=== PATIENT | female | born 1960 | race Caucasian/White ===

== ENCOUNTER 2022-08-20 09:55 | Outpatient (REF) | payer OTHER, SELFPAY ==
[2022-08-20 11:09] LABS: MANUAL DIFF FLAG NO
[2022-08-20 11:36] LABS: Basophils Percent Auto 0.3 % (0-2); Hematocrit 38.3 % (37.0-47.0); Hemoglobin 12.4 g/dl (12.0-16.0); Imm Gran Abs Auto 0.03 X10*3/uL (0.00-0.03); Imm Gran Pct Auto 0.4 % (0.0-0.4); Lymphocytes Absolute Auto 2.2 X10*3/uL (1.2-4.9); Lymphocytes Percent Auto 29.8 % (20-40); Mean Corpuscular HGB Conc 32.4 g/dl (31.0-35.0); Mean Corpuscular Hemoglobin 27.4 pg (27.0-33.0); Mean Corpuscular Volume 84.5 fL (80.0-98.0); Mean Platelet Volume 9.6 fL (9.4-12.3); Monocytes Absolute Auto 0.8 X10*3/uL (0.1-1.2); Monocytes Percent Auto 11.2 % (2-11); Neutrophils Absolute Auto 4.3 x10*3/uL (2.0-8.3); Neutrophils Percent Auto 58.3 % (45-73); Platelet Count 324 X10*3/uL (160-400); Red Blood Count 4.53 X10*6/uL (4.20-5.50); Red Cell Distribution Width 12.6 % (11.0-16.0); White Blood Count 7.3 X10*3/uL (4.8-10.8)
[2022-08-20 12:08] LABS: Alanine Aminotransferase 50 U/L (0-31); Albumin Level 4.1 g/dL (3.5-5.0); Alkaline Phosphatase 85 U/L (39-117); Anion Gap 15 (12-20); Aspartate Amino Transferase 35 U/L (5-31); Bilirubin Total 0.5 mg/dL (0.0-1.0); Blood Urea Nitrogen 8 mg/dL (9-16); Calcium 9.2 mg/dL (8.4-10.2); Carbon Dioxide 27 mmol/L (22-29); Chloride 104 mmol/L (96-108); Cholesterol 192 mg/dL; Estimated Glomerular Filt Rate > 60; Glucose Fasting 94 mg/dL (60-99); HDL Cholesterol 66 mg/dL; LDL Cholesterol Calculated 100 mg/dl; Potassium 4.7 mmol/L (3.3-5.1); Sodium 141 mmol/L (135-145); Total Protein 6.9 g/dL (6.5-8.0); Triglycerides 134 mg/dL
== END 2022-08-20 09:56 | disposition home or self-care (01) ==
LOC: HO.WFDLDS 09:55
PROVIDERS: Visit Provider Family Medicine
DX: Z00.00 Encounter for general adult medical examination without abnormal findings (principal)
CPT/HCPCS: 36415; 80053; 80061; 84443; 85025

== ENCOUNTER 2023-02-05 11:41 | Outpatient (REF) | payer OTHER, SELFPAY ==
[2023-02-05 14:07] LABS: Appearance Urine Cloudy; Color Urine Yellow; Glucose Urine UA Negative (Negative); Leukocyte Esterase Urine Large (3+) (Negative); Nitrite Urine Negative (Negative); PH 5.5 (5.0-9.0); UMIC TRIGGER UA YES; Urine Blood Negative (Negative); Urine Ketones Trace mg/dL (Negative); Urine Protein Trace mg/dL (Neg-Trace)
[2023-02-05 14:12] LABS: Bacteria Urine 1+ (None Seen); WBC Urine >50 /HPF (0-5)
[2023-02-05 15:23] LABS: Creatinine Urine 178.19 mg/dL
[2023-02-05 15:40] LABS: Alanine Aminotransferase 27 U/L (0-31); Albumin Level 4.1 g/dL (3.5-5.0); Alkaline Phosphatase 87 U/L (39-117); Anion Gap 12 (12-20); Aspartate Amino Transferase 23 U/L (5-31); Bilirubin Total 0.5 mg/dL (0.0-1.0); Blood Urea Nitrogen 16 mg/dL (9-16); Calcium 9.1 mg/dL (8.4-10.2); Carbon Dioxide 29 mmol/L (22-29); Chloride 106 mmol/L (96-108); Estimated Glomerular Filt Rate > 60; Glucose Random 93 mg/dL (60-115); Potassium 4.4 mmol/L (3.3-5.1); Sodium 143 mmol/L (135-145); Total Protein 6.7 g/dL (6.5-8.0)
== END 2023-02-05 11:42 | disposition home or self-care (01) ==
LOC: HO.WFDLDS 11:41
PROVIDERS: Visit Provider Family Medicine
DX: R79.89 Other specified abnormal findings of blood chemistry (principal); I10 Essential (primary) hypertension
CPT/HCPCS: 36415; 80053; 81001; 81003; 82043

== ENCOUNTER 2023-03-14 05:32 | Outpatient (REF) | payer OTHER, SELFPAY ==
--- NOTE | ~2023-03-14 | XR_ITS ---
EXAMINATION: XR HIP, RIGHT CLINICAL INFORMATION: Right hip pain COMPARISON: None available. TECHNIQUE: Two views of the right hip. FINDINGS: No acute fracture or dislocation. Mild to moderate narrowing of the right femoral acetabular joint. XR/XR hip RT w PEL1V IMPRESSION: Mild to moderate narrowing of the right femoral acetabular joint.
== END 2023-03-14 05:33 | disposition home or self-care (01) ==
LOC: HO.HOSX 05:32
PROVIDERS: Visit Provider Physician Assistant
DX: M70.61 Trochanteric bursitis, right hip (principal); M76.891 Other specified enthesopathies of right lower limb, excluding foot; M54.31 Sciatica, right side
CPT/HCPCS: 73502; 99202

== ENCOUNTER 2023-09-16 11:30 | Outpatient (AMB) | payer OTHER, SELFPAY ==
[2023-09-16 11:46] VITALS: BP 118/72; PULSE 80; O2SAT 95; BMI 34.5
--- NOTE | 2023-09-16 11:46 | MHC.PC.OV ---
Vital Signs 09/16/23 11:46 Height 5 ft 6 in Weight 214 lb BMI 34.5 BP 118/72 Blood Pressure Location Lt brachial Position Sitting Pulse 80 Pulse Source Pulse Oximeter Pulse Oximetry (%) 95 Oxygen Delivery Method Room Air Intake Visit Reasons: Follow up chronic conditions Intake Note: Patient is here to follow up on chronic conditions. Allergies No Known Allergies Allergy (Verified 09/16/23 11:49) Tobacco use date assessed: 09/16/23 Fall risk assessment: No Falls in past year Last assessed Fall Risk: 09/16/23 Dental Screening Dental Screen Date: 09/16/23 Did you have a dental visit in the last 12 months?: Yes Did you have a dental problem in the last 6 months where you did not have access to dental care?: No Was dental information given to patient?: Patient has dentist HPI Follow up chronic conditions HPI Details 63 y/o female presents to f/u chronic conditions. She reports she has been watching her diet and has been getting some exercise. [facility] Medical History Impacted molar Schizoaffective disorder Surgical History [place] teeth removed Social History Housing: House Patient Tobacco Use Status: Never used Tobacco e-Cigarette/Vaping Use: Never Used Second Hand Smoke Exposure: No service: No Current occupational status: retired Current occupational exposures/hazards: No Cognitive needs: No Hearing needs: No Vision needs: Yes (wears prescription glasses.) Questionnaire Thrive Questionnaire Date Thrive assessed: 01/29/23 JACOBO-7 AMB Questionnaire JACOBO-7 Date JACOBO - 7 assessed: 01/29/23 Source: Developed by Drs. Estevan France, Erika Cleaning, Cole Jean and colleagues, with an educational suman from [employer]. Review of Systems Const Denies chills, Denies fatigue, Denies fever(s), Denies headache(s) and Denies weakness ENT Denies dizziness and Denies headache(s) Card Denies chest pain, Denies lightheadedness, Denies dyspnea and Denies other (Palpitations) Resp Denies cough, Denies dyspnea, Denies wheezing and Denies other ( shortness of breath) Musc Denies numbness and Denies tingling Neuro Denies dizziness, Denies headache(s), Denies numbness, Denies tingling, Denies paresthesias and Denies weakness Psych Denies anxiety and Denies depression Endo Denies fatigue Aller/Immun Denies wheezing Physical exam (Primary Care) Vital Signs: Last Vital Signs Pulse 80 09/16/23 11:46 BP 118/72 09/16/23 11:46 Pulse Ox 95 09/16/23 11:46 Oxygen Delivery Method Room Air 09/16/23 11:46 BMI result Body Mass Index 34.5 Tobacco/Smoking Status: Tobacco use Status Tobacco use date assessed 09/16/23 09/16/23 11:55 Patient Tobacco Use Status Never used Tobacco 09/16/23 11:55 e-Cigarette/Vaping Use Never Used 09/16/23 11:55 Thrive Assessment: Date of Thrive Assessment Date Thrive assessed 01/29/23 09/16/23 11:55 Const General: no acute distress and well developed Nutritional Appearance: well nourished Orientation/consciousness: patient oriented x3 [facility] Head: Yes normocephalic and Yes atraumatic Eyes General: appearance normal, both eyes and all related structures Pupils: Equal, round and reactive pupils present EOM: EOMs intact bilaterally Resp Effort & Inspection: normal respiratory effort Auscultation: clear to auscultation bilaterally Cardio Rate: regular rate Rhythm: regular rhythm Heart sounds: S1 normal heart sound present, S2 normal heart sound present, no gallops, no murmurs and no rubs Neuro General: patient oriented x3 and gait normal Cranial nerves: Yes Equal, round and reactive pupils present Psych Affect: normal affect Assessment and Plan Assessment & Plan (1) Right hip pain: Code(s): M25.551 - Pain in right hip Plan: Continue?stretching?exercises Can?use?ibuprofen?episodically?for?few?days?at?a?time Ice/heat Let?me?know?if?you?are?having?any?other?problems?and?we?can?try?physical?therapy?or?refer?back?to?ortho (2) Obesity: Code(s): E66.9 - Obesity, unspecified Plan: She?has?lost?about?5?lb?since?her?last?visit I?encouraged?her?to?continue?exercising?and?work?at?healthy?foods?and?a?decrease?in?portion?sizes?for?continued?weight?loss. Orders: Orders Lipid Panel Today Z00.00 - Encounter for general adult medical examination without abnormal findings UA and rflx microscopic Today Z00.00 - Encounter for general adult medical examination without abnormal findings Comprehensive Wells. Panel Fast Today Z00.00 - Encounter for general adult medical examination without abnormal findings Complete Blood Count Auto Diff Today Z00.00 - Encounter for general adult medical examination without abnormal findings Microalbumin, Random (w Creat) Today I10 - Essential (primary) hypertension TSH reflex Free T4 Today Z00.00 - Encounter for general adult medical examination without abnormal findings Coding Level of Care Code Est Pt Level 3 (87847) Diagnoses Right hip pain M25.551 Obesity E66.9
== END 2023-09-16 12:31 | disposition home or self-care (01) ==
PROVIDERS: PCP Family Medicine; Visit Provider Family Medicine
DX: M25.551 Pain in right hip (principal); E66.9 Obesity, unspecified; Z68.34 Body mass index [BMI] 34.0-34.9, adult
CPT/HCPCS: 99213

== ENCOUNTER 2024-02-04 10:22 | Outpatient (REF) | payer OTHER, SELFPAY ==
[2024-02-04 11:39] LABS: Basophils Percent Auto 0.5 % (0-2); Hematocrit 37.1 % (37.0-47.0); Hemoglobin 12.1 g/dl (12.0-16.0); Imm Gran Abs Auto 0.01 X10*3/uL (0.00-0.03); Imm Gran Pct Auto 0.2 % (0.0-0.4); Lymphocytes Absolute Auto 1.7 X10*3/uL (1.2-4.9); Lymphocytes Percent Auto 28.6 % (20-40); MANUAL DIFF FLAG NO; Mean Corpuscular HGB Conc 32.6 g/dl (31.0-35.0); Mean Corpuscular Hemoglobin 27.2 pg (27.0-33.0); Mean Corpuscular Volume 83.4 fL (80.0-98.0); Mean Platelet Volume 9.8 fL (9.4-12.3); Monocytes Absolute Auto 0.6 X10*3/uL (0.1-1.2); Neutrophils Absolute Auto 3.7 x10*3/uL (2.0-8.3); Neutrophils Percent Auto 60.7 % (45-73); Platelet Count 316 X10*3/uL (160-400); Red Blood Count 4.45 X10*6/uL (4.20-5.50); Red Cell Distribution Width 12.7 % (11.0-16.0)
[2024-02-04 11:40] LABS: Appearance Urine Clear; Color Urine Dark Yellow; Glucose Urine UA Negative (Negative); Leukocyte Esterase Urine Trace (Negative); Nitrite Urine Negative (Negative); Specific Gravity - Urine 1.015 (1.005-1.025); UMIC TRIGGER UA YES; Urine Blood Negative (Negative); Urine Ketones Negative (Negative); Urine Protein Negative (Neg-Trace)
[2024-02-04 11:45] LABS: Bacteria Urine Trace (None Seen); Hyaline Casts Urine 0-2 /LPF (0-2); RBC Urine 0-2 /HPF (0-2)
[2024-02-04 12:22] LABS: Alanine Aminotransferase 32 U/L (0-31); Albumin Level 3.9 g/dL (3.5-5.0); Alkaline Phosphatase 88 U/L (39-117); Anion Gap 9 (12-20); Aspartate Amino Transferase 29 U/L (5-31); Bilirubin Total 0.3 mg/dL (0.0-1.0); Blood Urea Nitrogen 11 mg/dL (9-16); Calcium 9.1 mg/dL (8.4-10.2); Carbon Dioxide 28 mmol/L (22-29); Chloride 107 mmol/L (96-108); Cholesterol 176 mg/dL (<200); Estimated Glomerular Filt Rate > 60; Glucose Fasting 98 mg/dL (60-99); HDL Cholesterol 69 mg/dL (>40); LDL Cholesterol Calculated 88 mg/dL (<100); Potassium 4.1 mmol/L (3.3-5.1); Sodium 140 mmol/L (135-145); Total Protein 6.8 g/dL (6.5-8.0); Triglycerides 97 mg/dL (<150)
[2024-02-04 12:23] LABS: TSH reflex Free T4 2.45 uIU/mL (0.32-4.0)
[2024-02-04 12:43] LABS: Creatinine Urine 107.84 mg/dL; Microalbum/Creatinine Ratio Ur 5.5 ug/mg cr (<30)
== END 2024-02-04 10:23 | disposition home or self-care (01) ==
LOC: HO.WFDLDS 10:22
PROVIDERS: Visit Provider Family Medicine
DX: Z00.00 Encounter for general adult medical examination without abnormal findings (principal); I10 Essential (primary) hypertension
CPT/HCPCS: 36415; 80053; 80061; 81001; 82043; 82570; 84443; 85025

== ENCOUNTER 2024-02-10 11:55 | Outpatient (AMB) | payer OTHER, SELFPAY ==
[2024-02-10 11:59] VITALS: BP 120/74; PULSE 86; O2SAT 96; BMI 35.4
--- NOTE | 2024-02-10 11:59 | MHC.PC.OV ---
Vital Signs 02/10/24 11:59 Height 5 ft 6 in Weight 219 lb 8 oz BMI 35.4 BP 120/74 Blood Pressure Location Lt brachial Position Sitting Pulse 86 Pulse Source Pulse Oximeter Pulse Oximetry (%) 96 Oxygen Delivery Method Room Air Intake Visit Reasons: cpe Intake Note: Patient is here for her physical today, and follow up on labs. Allergies No Known Allergies Allergy (Verified 02/10/24 12:00) Tobacco use date assessed: 02/10/24 Fall risk assessment: No Falls in past year Last assessed Fall Risk: 02/10/24 Dental Screening Dental Screen Date: 02/10/24 Did you have a dental visit in the last 12 months?: Yes Did you have a dental problem in the last 6 months where you did not have access to dental care?: No Was dental information given to patient?: Patient has dentist HPI cpe HPI Details 63 y/o female presents for a CPE with f/u labs and health maintenance. Labs were drawn 02/04/24. Reviewed labs with pt. Triglycerides 97. TC 176. LDL 88. HDL 69. Elevated ALT of 32. PFSH Medical History Impacted molar Schizoaffective disorder Surgical History [place] teeth removed Social History Housing: House Patient Tobacco Use Status: Never used Tobacco e-Cigarette/Vaping Use: Never Used Second Hand Smoke Exposure: No service: No Current occupational status: retired Current occupational exposures/hazards: No Cognitive needs: No Hearing needs: No Vision needs: Yes (wears prescription glasses.) Questionnaire PHQ-9 Over the last 2 weeks, how often have you been bothered by any of the following problems? 1. Little interest or pleasure in doing things: several days 2. Feeling down, depressed, or hopeless: not at all 3. Trouble falling or staying asleep, or sleeping too much: nearly every day 4. Feeling tired or having little energy: more than half the days 5. Poor appetite or overeating: not at all 6. Feeling bad about yourself - or that you are a failure or have let yourself or your family down: several days 7. Trouble concentrating on things, such as reading the newspaper or watching television: several days 8. Moving or speaking so slowly that other people could have noticed. Or the opposite - being so fidgety or restless that you have been moving around a lot more than usual: not at all 9. Thoughts that you would be better off or of hurting yourself in some way: not at all Total score: 8 Depression Screening Interpretation: Positive Depression Screening Follow-up: In treatment Depression Screening Done: Yes 64323 - PHQ-9 Billing: Yes Source: Developed by Drs. Estevan France, Erika Cleaning, Cole Jean and colleagues, with an educational suman from [employer]. Thrive Questionnaire Date Thrive assessed: 02/10/24 I am a: Patient What is your living situation today?: I have a steady place to live Within the past 12 months, did the food you bought not last and you didn't have the money to get more?: Never true Within the past 12 months, did you worry whether your food would run out before you got money to buy more?: Never true Do you have trouble paying for medicines?: No Do you have trouble getting transportation to medical appointments?: Yes Do you have trouble paying your heating and electricity bill?: No Do you have trouble taking care of your child, family member or friend?: No Do you have trouble with day-to-day activities such as bathing, preparing meals, shopping, managing finances, etc.?: No Are you currently unemployed and looking for a job?: No Are you interested in more education?: No THRIVE Score: 1 AUDIT C Alcohol Use Questionnaire (AUDIT-C) 1. How often do you have a drink containing alcohol?: Monthly or less 2. How many drinks containing alcohol do you have on a typical day when you are drinking?: 1 or 2 3. How often do you have six or more drinks on one occasion?: Never Total Score: 1 JACOBO-7 AMB Questionnaire JACOBO-7 Date JACOBO - 7 assessed: 02/10/24 Feeling nervous, anxious, or on edge: 1 = Several days Not being able to stop or control worryin = Not at all Worrying too much about different things: 0 = Not at all Trouble relaxin = Several days Being so restless that it is hard to sit still: 0 = Not at all Becoming easily annoyed or irritable: 0 = Not at all Feeling afraid as if something awful might happen: 1 = Several days Total JACOBO-7 score (0-4 normal; 5-9 mild; 10-14 moderate; 15-21 severe): 3 Source: Developed by Drs. Estevan France, Erika Cleaning, Cole Jean and colleagues, with an educational suman from [employer]. JACOBO-7 Assessment Billing JACOBO-7 Assessment Tool: JACOBO-7 Assessment 30396 Review of Systems Const Denies chills, Denies fatigue, Denies fever(s), Denies headache(s) and Denies weakness Eyes Denies change in vision ENT Denies dizziness, Denies headache(s), Denies hearing loss, Denies nasal congestion, Denies sinus pain, Denies sinus pressure and Denies sore throat Card Denies chest pain, Denies lightheadedness, Denies dyspnea and Denies other (palpitations) Resp Denies cough, Denies dyspnea and Denies wheezing GI Denies abdominal pain, Denies melena, Denies hematochezia, Denies change in bowel habits, Denies dyspepsia and Denies nausea Denies hematuria and Denies dysuria Musc Denies abnormal gait, Denies myalgias, Denies arthralgias, Denies numbness and Denies tingling Skin/Breast Denies rash, Denies unusual bruising and Denies wounds Neuro Denies abnormal gait, Denies dizziness, Denies headache(s), Denies memory loss, Denies numbness, Denies Sensory deficit (Neuro), Denies tingling and Denies weakness Psych Denies anxiety, Denies depression and Denies memory loss Endo Denies cold intolerance, Denies fatigue, Denies heat intolerance, Denies polydipsia and Denies polyuria Solomon/Lymph Denies easy bleeding and Denies easy bruising Aller/Immun Denies wheezing Physical exam (Primary Care) Vital Signs: Last Vital Signs Pulse 86 02/10/24 11:59 BP 120/74 02/10/24 11:59 Pulse Ox 96 02/10/24 11:59 Oxygen Delivery Method Room Air 02/10/24 11:59 BMI result Body Mass Index 35.4 Tobacco/Smoking Status: Tobacco use Status Tobacco use date assessed 02/10/24 02/10/24 12:01 Patient Tobacco Use Status Never used Tobacco 02/10/24 11:59 e-Cigarette/Vaping Use Never Used 02/10/24 11:59 PHQ-9: PHQ-9 Score PHQ-9: Total score 8 02/10/24 12:39 Depression Screening Interpretation: Positive Depression Screening Follow-up: In treatment Thrive Assessment: Date of Thrive Assessment Date Thrive assessed 02/10/24 02/10/24 12:11 Const General: no acute distress, well developed, alert and awake Nutritional Appearance: well nourished Orientation/consciousness: patient oriented x3 [facility] Head: Yes normocephalic and Yes atraumatic Ears: hearing grossly normal bilaterally and TM's normal bilaterally General nose exam: Normal external nose present and Normal nares present Mouth: Normal oral and palatal mucosa present and moist mucous membranes Teeth and gingiva: dentition normal Throat: Yes posterior oropharynx normal Eyes General: appearance normal, both eyes and all related structures Pupils: Equal, round and reactive pupils present and Pupil accommodation reflex normal EOM: EOMs intact bilaterally Neck Neck: Yes normal visual inspection, Yes no lymphadenopathy and Yes trachea midline Thyroid: Thyroid normal Carotids: no bruits Lymphatic: no lymphadenopathy noted Chest Chest palpation & inspection: normal inspection of the chest Resp Effort & Inspection: normal respiratory effort Auscultation: clear to auscultation bilaterally Cardio Rate: regular rate Rhythm: regular rhythm Heart sounds: S1 normal heart sound present, S2 normal heart sound present, no gallops, no murmurs and no rubs Bruits: no abdominal aortic bruits and no carotid bruits GI Palpation (GI): No Abdominal aortic bruit present, Soft to palpation, nontender, No hepatosplenomegaly present and No Rebound tenderness present Auscultation: normal bowel sounds General: Yes no CVA tenderness Back/Spine/Pelvis Back: no CVA tenderness Cervical Spine: cervical ROM normal and No Cervical spine tenderness Thoracic/Lumbar Spine: thoraco-lumbar ROM normal, No pain with thoraco-lumbar ROM, No thoracic spinal tenderness and No lumbar spinal tenderness Skin Lesions: no lesions Rashes: no rashes Trauma: no lacerations or abrasions Wounds: no wounds Nails: normal Neuro General: patient oriented x3 Cranial nerves: Yes Equal, round and reactive pupils present Cognition (Neuro): normal cognition Gait exam (Neuro): Normal gait present Motor exam (neuro): 5/5 motor strength present throughout Sensory Exam: No Sensory deficit (Neuro) Deep tendon reflexes (DTR's): Right patellar reflex intensity grade: 2+ and Left patellar reflex intensity grade: 2+ Extrem General: Yes normal to inspection and No edema Psych Appearance: grossly normal Affect: normal affect Attitude: cooperative Thought process: Normal thought process present Assessment and Plan Assessment & Plan (1) Adult general medical exam: Code(s): Z00.00 - Encounter for general adult medical examination without abnormal findings Plan: 63-year-old?female?presents?for?complete?physical?exam (2) Hyperlipidemia: Code(s): E78.5 - Hyperlipidemia, unspecified Plan: Lipids?controlled?with?atorvastatin Continue?current?medication (3) Screening for colon cancer: Code(s): Z12.11 - Encounter for screening for malignant neoplasm of colon Plan: Cologuard?last?year?was?negative?and?we?will?continue?screening?with?Cologuard?test?every?3?year (4) Screening for cervical cancer: Code(s): Z12.4 - Encounter for screening for malignant neoplasm of cervix Plan: Patient?declines?Pap?smears. Also,?patient?is?63 She?will?let?me?know?if?she?is?having?any?problem (5) Screening for breast cancer: Code(s): Z12.39 - Encounter for other screening for malignant neoplasm of breast Plan: Patient?declines?mammogram She?will?let?us?know?if?she?is?noticing?any?problems?as?she?performs?self?exams. (6) Right hip pain: Code(s): M25.551 - Pain in right hip Plan: Ongoing?right?hip?pain?which?has?improved She?will?let?me?know?if?worsening. (7) Depression: Code(s): F32.A - Depression, unspecified Plan: She?is?on?fluoxetine?and?olanzapine. Followed?by?her?psych?med?provider?and?therapist Continue?current?medication?regimen?and?follow-up?with (8) Elevated ALT measurement: Code(s): R74.01 - Elevation of levels of liver transaminase levels Plan: Mildly?elevated?liver?enzymes?again?and?this?seems?to?follow?her?weight?gain. Encouraged?weight?loss If?liver?enzymes?continue?to?increase,?would?check?an?ultrasound (9) Screening for osteoporosis: Code(s): Z13.820 - Encounter for screening for osteoporosis Plan: Patient?is?63 Check?bone?density?test Orders: Orders XR DEXA axial skeleton Today M81.0 - Age-related osteoporosis without current pathological fracture UA and rflx microscopic Today Z00.00 - Encounter for general adult medical examination without abnormal findings Coding Level of Care Code Est Pt Level 3 (76218) Est Pt Prev Care >65y(56524) Diagnoses Adult general medical exam Z00.00 Hyperlipidemia E78.5 Screening for colon cancer Z12.11 Screening for cervical cancer Z12.4 Screening for breast cancer Z12.39 Right hip pain M25.551 Depression F32.A Elevated ALT measurement R74.01 Screening for osteoporosis Z13.820 Additional Codes JACOBO-7 Assessment Billing - JACOBO-7 Assessment Tool: JACOBO-7 Assessment 38033 ([id number])
== END 2024-02-10 12:59 | disposition home or self-care (01) ==
PROVIDERS: PCP Family Medicine; Visit Provider Family Medicine
DX: Z00.00 Encounter for general adult medical examination without abnormal findings (principal); E78.5 Hyperlipidemia, unspecified; M25.551 Pain in right hip; R74.01 Elevation of levels of liver transaminase levels; F32.A Depression, unspecified; Z12.11 Encounter for screening for malignant neoplasm of colon; Z12.39 Encounter for other screening for malignant neoplasm of breast; Z13.820 Encounter for screening for osteoporosis
CPT/HCPCS: 99397

== ENCOUNTER 2024-09-01 12:17 | Outpatient (REF) | payer OTHER, SELFPAY ==
[2024-09-01 14:52] LABS: Alanine Aminotransferase 37 U/L (0-31); Alkaline Phosphatase 101 U/L (39-117); Anion Gap 11 (12-20); Aspartate Amino Transferase 25 U/L (5-31); Bilirubin Total 0.5 mg/dL (0.0-1.0); Blood Urea Nitrogen 8 mg/dL (9-16); Calcium 9.1 mg/dL (8.4-10.2); Carbon Dioxide 27 mmol/L (22-29); Chloride 107 mmol/L (96-108); Cholesterol 179 mg/dL (<200); Estimated Glomerular Filt Rate > 60; Glucose Fasting 107 mg/dL (60-99); HDL Cholesterol 63 mg/dL (>40); LDL Cholesterol Calculated 88 mg/dL (<100); Sodium 141 mmol/L (135-145); Total Protein 7.1 g/dL (6.5-8.0); Triglycerides 140 mg/dL (<150)
[2024-09-01 15:02] LABS: TSH reflex Free T4 2.67 uIU/mL (0.32-4.0)
== END 2024-09-01 12:18 | disposition home or self-care (01) ==
LOC: HO.WFDLDS 12:17
PROVIDERS: Visit Provider Family Medicine
DX: Z00.00 Encounter for general adult medical examination without abnormal findings (principal); I10 Essential (primary) hypertension
CPT/HCPCS: 36415; 80053; 80061; 84443

== ENCOUNTER 2024-09-25 11:41 | Outpatient (REF) | payer OTHER, SELFPAY ==
[2024-09-25 14:17] LABS: Appearance Urine Clear; Color Urine Yellow; Glucose Urine UA Negative (Negative); Leukocyte Esterase Urine Negative (Negative); Nitrite Urine Negative (Negative); PH 6.5 (5.0-9.0); Urine Blood Negative (Negative); Urine Ketones Negative (Negative); Urine Protein Negative (Neg-Trace)
[2024-09-25 14:57] LABS: Creatinine Urine 181.08 mg/dL; Microalbum/Creatinine Ratio Ur 4.9 ug/mg cr (<30)
== END 2024-09-25 11:42 | disposition home or self-care (01) ==
LOC: HO.WFDLDS 11:41
PROVIDERS: Visit Provider Family Medicine
DX: Z00.00 Encounter for general adult medical examination without abnormal findings (principal); I10 Essential (primary) hypertension
CPT/HCPCS: 81003; 82043; 82570

== ENCOUNTER 2025-02-10 15:38 | Outpatient (AMB) | payer MEDICARE, SELFPAY ==
--- NOTE | 2025-02-10 15:44 | A.OFFPC_ITS ---
Vital Signs 02/10/25 15:47 Height 5 ft 6 in Weight 239 lb 6 oz BMI 38.6 BP 134/84 Blood Pressure Location Lt brachial Position Sitting Respiration 16 Pulse 79 Pulse Source Pulse Oximeter Pulse Oximetry (%) 91 L Oxygen Delivery Method Room Air Intake Visit Reasons: cpe Intake Note: Physical. Has frequent falls due to leg collapsing. Allergies No Known Allergies Allergy (Verified 02/10/25 15:45) Tobacco use date assessed: 02/10/24 Fall risk assessment: 2 + Falls in past year (Patient states she falls a couple times a day. Leg collapses, and catches herself. ) Last assessed Fall Risk: 02/10/25 Dental Screening Dental Screen Date: 02/10/24 HPI cpe HPI Details Patient is a 64-year-old female who presents today for a physical exam. She normally follows with Dr. Tipton. She has a history of elevated LFTs, depression, hyperlipidemia, schizoaffective disorder. Psych: Has a history of schizoaffective disorder, depression following with Psychiatry in [place]. Currently on zolpidem, olanzapine and fluoxetine. No SI/HI. CV: Blood pressure today in the office is 120/74. She is on atorvastatin 20 mg. Last LDL was 88. LFTs were elevated. Has a history of this. Musculoskeletal: has had recurrent hip pain and instability x 2 years. No improvement with PT. No initial trauma. Would like to see ortho. Mammo: declines/refuses -never had Pap: declines Bone density: never had Colonoscopy: refuses- would do a cologuard [facility] Medical History Impacted molar Schizoaffective disorder Surgical History [place] teeth removed Social History Housing: House Patient Tobacco Use Status: Never used Tobacco e-Cigarette/Vaping Use: Never Used Second Hand Smoke Exposure: No service: No Current occupational status: retired Current occupational exposures/hazards: No Cognitive needs: No Hearing needs: No Vision needs: Yes (wears prescription glasses.) Questionnaire Thrive Questionnaire Date Thrive assessed: 02/07/25 I am a: Patient What is your living situation today?: I have a steady place to live Within the past 12 months, did the food you bought not last and you didn't have the money to get more?: I choose not to answer this question Within the past 12 months, did you worry whether your food would run out before you got money to buy more?: I choose not to answer this question Do you have trouble paying for medicines?: No Do you have trouble getting transportation to medical appointments?: I choose not to answer this question Do you have trouble paying your heating and electricity bill?: I choose not to answer this question Do you have trouble taking care of your child, family member or friend?: I choose not to answer this question Do you have trouble with day-to-day activities such as bathing, preparing meals, shopping, managing finances, etc.?: I choose not to answer this question Are you currently unemployed and looking for a job?: No Are you interested in more education?: No Please select the resources that you would like help with: Transportation Currently or been in a relationship where the following occur: No concerns reported THRIVE Score: 0 AUDIT C Alcohol Use Questionnaire (AUDIT-C) 1. How often do you have a drink containing alcohol?: Monthly or less 2. How many drinks containing alcohol do you have on a typical day when you are drinking?: 1 or 2 3. How often do you have six or more drinks on one occasion?: Never Total Score: 1 JACOBO-7 AMB Questionnaire JACOBO-7 Date JACOBO - 7 assessed: 02/10/24 Feeling nervous, anxious, or on edge: 1 = Several days Not being able to stop or control worryin = Several days Worrying too much about different things: 1 = Several days Trouble relaxin = Several days Being so restless that it is hard to sit still: 1 = Several days Becoming easily annoyed or irritable: 0 = Not at all Feeling afraid as if something awful might happen: 1 = Several days Total JACOBO-7 score (0-4 normal; 5-9 mild; 10-14 moderate; 15-21 severe): 6 Source: Developed by Drs. Estevan France, Erika Cleaning, Cole Jean and colleagues, with an educational suman from [employer]. Physical exam (Primary Care) Tobacco/Smoking Status: Tobacco use Status Tobacco use date assessed 02/10/24 02/10/24 12:01 Patient Tobacco Use Status Never used Tobacco 02/10/24 11:59 e-Cigarette/Vaping Use Never Used 02/10/24 11:59 Thrive Assessment: Date of Thrive Assessment Date Thrive assessed 02/07/25 02/07/25 15:31 Currently or been in a relationship where the following occur: No concerns reported Const Orientation/consciousness: patient oriented x3 HENMT Ears: hearing grossly normal bilaterally and TM's normal bilaterally General nose exam: No nasal polyps present Face and sinus: Yes sinuses nontender Mouth: Normal oral and palatal mucosa present Eyes Pupils: Equal, round and reactive pupils present EOM: EOMs intact bilaterally Neck Neck: Yes full ROM and Yes no lymphadenopathy Thyroid: Thyroid normal Chest Chest palpation & inspection: normal inspection of the chest Resp Auscultation: clear to auscultation bilaterally Cardio Rate: regular rate Rhythm: regular rhythm Heart sounds: S1 normal heart sound present and S2 normal heart sound present Peripheral pulses: Peripheral pulses 2+ throughout GI Other: Soft, nontender Auscultation: normal bowel sounds Rectal Exam - Female: deferred General: Yes no CVA tenderness Back/Spine/Pelvis Other: Nontender Back: no CVA tenderness Skin General skin exam: no rashes or lesions noted Neuro General: patient oriented x3, gait normal, CN's II-XI intact bilaterally and deep tendon reflexes 2+ bilaterally Cranial nerves: Yes Equal, round and reactive pupils present Motor exam (neuro): 5/5 motor strength present throughout Sensory Exam: double simultaneous stimulation for sensation normal Coordination: [id number] test normal and Romberg test negative Extrem General: Yes normal to inspection and Yes full ROM Psych Affect: normal affect Attitude: cooperative Thought process: Normal thought process present Thought content: Normal thought content present Insight: Good insight present (Psych) Judgement: Good judgement present (Psych) Results Reviewed Results Reviewed: Laboratory Tests 09/01/24 12:19 Sodium 141 Potassium 4.0 Chloride 107 Carbon Dioxide 27 Anion Gap 11 L BUN 8 L Creatinine 0.75 Estimated GFR > 60 Fasting Glucose 107 H AST 25 ALT 37 H Triglycerides 140 Cholesterol 179 LDL Cholesterol, Calc 88 HDL Cholesterol 63 TSH 2.67 Coding Level of Care Code Est Pt Prev Care >65y(80645) Diagnoses Adult general medical exam Z00.00 Depression F32.A Schizoaffective disorder F25.9 Hyperlipidemia E78.5 Elevated ALT measurement R74.01 Right hip pain M25.551 Assessment & Plan Assessment & Plan (1) Adult general medical exam: Code(s): Z00.00 - Encounter for general adult medical examination without abnormal findings Category: Medical Plan: Health maintenance reviewed. Declines some screening tests and immunizations. Cologuard ordered. We will let me know if she changes her mind on breast cancer screening or bone density. (2) Depression: Code(s): F32.A - Depression, unspecified Category: Medical Plan: Stable. Following with behavioral health (3) Schizoaffective disorder: Code(s): F25.9 - Schizoaffective disorder, unspecified Category: Medical Plan: As above (4) Hyperlipidemia: Code(s): E78.5 - Hyperlipidemia, unspecified Category: Medical Plan: Continue atorvastatin (5) Elevated ALT measurement: Code(s): R74.01 - Elevation of levels of liver transaminase levels Category: Medical Plan: LFTs ordered. Liver ultrasound ordered. (6) Right hip pain: Code(s): M25.551 - Pain in right hip Category: Medical Plan: Referral to ortho Orders: Orders US abdomen comp w elastography Today R79.89 - Other specified abnormal findings of blood chemistry Liver Panel Today R74.01 - Elevation of levels of liver transaminase levels, R79.89 - Other specified abnormal findings of blood chemistry Hemoglobin A1c Today R73.01 - Impaired fasting glucose, R74.01 - Elevation of levels of liver transaminase levels, R79.89 - Other specified abnormal findings of blood chemistry Referrals Cologuard Test Z12.11 - Encounter for screening for malignant neoplasm of colon Orthopedics Referral M25.551 - Pain in right hip Nurse Navigator Referral Z59.82 - Transportation insecurity
[2025-02-10 15:47] VITALS: BP 134/84; PULSE 79; RESP 16; O2SAT 91; BMI 38.6
== END 2025-02-10 17:05 | disposition home or self-care (01) ==
PROVIDERS: PCP Family Medicine; Visit Provider Physician Assistant
DX: Z00.00 Encounter for general adult medical examination without abnormal findings (principal); F32.A Depression, unspecified; F25.9 Schizoaffective disorder, unspecified; E78.5 Hyperlipidemia, unspecified; R74.01 Elevation of levels of liver transaminase levels; M25.551 Pain in right hip

== ENCOUNTER → 2025-02-10 15:38 | Outpatient (BNVA) | payer MEDICARE, SELFPAY | PROVIDERS: PCP Family Medicine; Visit Provider Physician Assistant | DX: Z00.00 Encounter for general adult medical examination without abnormal findings (principal); F32.A Depression, unspecified; F25.9 Schizoaffective disorder, unspecified; E78.5 Hyperlipidemia, unspecified; R74.01 Elevation of levels of liver transaminase levels; M25.551 Pain in right hip | CPT/HCPCS: 99397 ==

== ENCOUNTER 2025-04-28 08:35 | Outpatient (REF) | payer MEDICARE, SELFPAY ==
--- NOTE | ~2025-04-28 | XR_ITS ---
EXAMINATION: XR HIP, RIGHT CLINICAL INFORMATION: M25.551 - Pain in right hip COMPARISON: March 14, 2023. TECHNIQUE: Two views of the right hip. AP pelvis. FINDINGS: No acute cortical disruption or malalignment. Sclerosis along the articular surface of the right acetabulum. Asymmetric joint space narrowing. No lytic or blastic lesions. Sclerosis along the symphysis pubis. Facet joint hypertrophy at L5-S1. XR/XR hip RT min 2V IMPRESSION: Mild osteoarthrosis, right hip. Spondylosis L5-S1. Electronically signed by: Adam Shaw MD 04/28/2025 02:37 PM EDT
== END 2025-04-28 08:36 | disposition home or self-care (01) ==
LOC: HO.HOSX 08:35
PROVIDERS: Visit Provider Physician Assistant
DX: M25.551 Pain in right hip (principal); M76.891 Other specified enthesopathies of right lower limb, excluding foot
CPT/HCPCS: 73502; 99212

== ENCOUNTER 2025-04-28 11:04 | Outpatient (AMB) | payer MEDICARE, SELFPAY ==
--- NOTE | 2025-04-28 11:07 | A.OFFVIS_ITS ---
Vital Signs 04/28/25 11:24 Height 5 ft 6 in Weight 239 lb BMI 38.6 Intake Visit Reasons: OV- Pain in right hip Intake Note: Keila is a 64 year old female who presents for a follow up of right hip pain. Patient was previously seen in office on 03/14/23 for her right hip pain and was referred to physical therapy. She was to follow-up on an as needed basis. Today patient reports ongoing pain in her groin area. States it feels like her bone is coming out. She has difficulty with walking. She had tried yoga however this increased her pain. 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 No traumatic injury. She attended physical therapy, however discontinued as she was told it was her back. She denies numbness or tingling. Allergies No Known Allergies Allergy (Verified 04/28/25 11:22) Medication List - Last Reconciled 04/28/25 by Adrián Ryan PA-C atorvastatin 20 mg PO DAILY 90 days fluoxetine 80 mg PO QAM olanzapine 15 mg PO BEDTIME zolpidem 5 - 10 mg PO BEDTIME PRN HPI HPI OV- Pain in right hip: Details: 64-year-old female returns to the office today for a follow-up right hip pain. Her primary complaint is that it feels like her right hip is coming out of joint. She states this will happen when she is walking and she will all of a sudden feel the hip come out of place. She denies deformity when this happens. States she has not had to go to the emergency department for reduction. She was previously seen by me for her right hip and was sent to physical therapy to work on some back exercises as she appeared to have some sciatica and glute tendinopathy. She states she was also working on some chair yoga exercises. She did not feel any relief from either modalities. [facility] Medical History Impacted molar Schizoaffective disorder Surgical History [place] teeth removed Social History Housing: House Patient Tobacco Use Status: Former Tobacco user Cigarette Packs Per Day: 2 Years Smoked: 8 e-Cigarette/Vaping Use: Never Used Second Hand Smoke Exposure: No service: No Current occupational status: retired Current occupational exposures/hazards: No Cognitive needs: No Hearing needs: No Vision needs: Yes (wears prescription glasses.) Review of Systems Const All systems reviewed & are unremarkable except as noted in HPI and below Physical Exam Vital Signs: BMI result Body Mass Index 38.6 Extrem Other: Right hip full range of motion without pain. No pain with hip flexion. Neurovascularly intact. Results Reviewed Results Reviewed: X-rays of the right hip obtained in the office today and reviewed by me show mild arthritic changes Assessment & Plan Assessment & Plan (1) Tendonitis of right hip flexor: Code(s): M76.891 - Other specified enthesopathies of right lower limb, excluding foot Category: Medical Plan: At this time an MRI arthrogram of the right hip has been ordered to further evaluate the soft tissues and surrounding structures. I did explain to the patient if there is some pathology to structures such as the labrum she may not entirely benefit from a hip arthroscopy given there is some arthritis. I explained to her with arthritic changes in the joint this can contribute to some of her discomfort. Once the MRI is completed I will contact the patient to discuss further treatment options. Orders: Orders XR hip RT min 2V Today M25.551 - Pain in right hip MR hip RT w con Today M76.891 - Other specified enthesopathies of right lower limb, excluding foot FL arthrogram hip RT Today M16.11 - Unilateral primary osteoarthritis, right hip Coding Level of Care Code Est Pt Level 3 (34859) Complex EM visit Add On G2211 Diagnoses Tendonitis of right hip flexor M76.891
[2025-04-28 11:24] VITALS: BMI 38.6
== END 2025-04-28 11:34 | disposition home or self-care (01) ==
LOC: HO.HOS 11:05
PROVIDERS: PCP Family Medicine; Visit Provider Physician Assistant
DX: M76.891 Other specified enthesopathies of right lower limb, excluding foot (principal)
CPT/HCPCS: 99213; G2211

== ENCOUNTER → 2025-04-28 11:07 | Outpatient (BNV) | payer MEDICARE, SELFPAY | PROVIDERS: Visit Provider Radiology Diagnostic Radiology | DX: M16.11 Unilateral primary osteoarthritis, right hip (principal) | CPT/HCPCS: 73502 ==

== ENCOUNTER 2025-06-02 12:44 | Outpatient (REF) | payer MEDICARE, SELFPAY ==
--- NOTE | ~2025-06-02 | FL_ITS ---
EXAMINATION: Right hip arthrogram for MRI evaluation. CLINICAL INDICATION: Right hip pain. Comparison: None TECHNIQUE: Following fluoroscopy guided right hip arthrogram procedure, benefits and risk, a written consent was obtained. Patient was placed supine on fluoroscopy table and preliminary imaging was obtained. Hip. An optimal site was selected and marked on the skin. The marked area was cleaned and draped in usual sterile manner with 2% chlorhexidine solution. 1% lidocaine jelly was administered puncture site. A 22-gauge spinal needle was inserted from the skin into the joint space along the lateral surface of femoral neck. Nonionic contrast injected and single image was mapped. Subsequently 0.1 mL of gadolinium was dilated with 1% lidocaine and saline as 12 - 14 ml volume was injected and needle withdrawn. Simple Band-Aid applied simple Band-Aid applied postprocedure at the puncture site. Patient tolerated procedure extremely well. Patient was then sent to MRI for further evaluation. FINDINGS: There is mild periarticular arthritis right hip. No fracture, loose bodies, lytic or sclerotic process seen. There is iodine contrast visualized in the right hip joint space. FL/FL arthrogram hip RT IMPRESSION: Successful fluoroscopy-guided right hip gadolinium injection for patient to be imaged by Fluoroscopy time: 30 seconds. Dose area product: 808 mGy/cm. Electronically signed by: Jordan Niño MD 06/02/2025 02:02 PM EDT
--- NOTE | ~2025-06-02 | MR_ITS ---
EXAMINATION: MRI of the right hip was performed with intra-articular contrast TECHNIQUE: Multiplanar multisequence MR imaging through a lower extremity joints was performed with intra-articular contrast INDICATION: Right hip dislodges forward falls, groin and thigh pain, chronic M76.891 - Other specified enthesopathies of right lower limb Prior: April 20, 2025 FINDINGS: Labrum: Gadolinium tracks into the superior and posterior superior labrum consistent with a tear between 1-3 o'clock. Gadolinium undercuts the anterior labrum at 10:00. Articular Cartilage: Full thickness cartilage defect is present in the posterior acetabular roof and also anterosuperiorly There is deep partial-thickness cartilage loss in the anterior femoral head, posterior superior femoral head, and posterior femoral head.. Ligament/Muscle/Tendon: Ligament teres is torn near the fovea. There may be a thin strand intact. There is minimal peritendinous fluid signal at insertion of gluteus medius and minimus. Neurovascular: Major neurovascular structures are unremarkable and symmetrical. Deep and superficial soft tissues: There is no intrapelvic mass or ascites. Visualized bowel is grossly unremarkable. Subcutaneous soft tissues are within normal limits. There is no adenopathy. Bones/Marrow: Moderate marginal osteophytes are present along the femoral head. There is appositional bone growth along the superior medial femoral neck. Minimal acetabular and perifoveal marginal osteophyte formation is present. MR/MR hip RT w con IMPRESSION: Moderate right hip joint osteoarthritis. Superior labral tear extending posteriorly between 1-3:00. Anterior superior labral tear at 10:00. Ligament of teres tear. There may be a thin strand intact. Distal gluteal medius and minimus tendinopathy. Electronically signed by: Yon Rangel MD 06/02/2025 02:41 PM EDT
[2025-06-02] MEDS: Lidocaine HCl 1 % MPF 30 ML VIAL 5 ML INTRAARTIC (13:42)
== END 2025-06-02 12:45 | disposition home or self-care (01) ==
LOC: HO.XRAY 12:44
PROVIDERS: Visit Provider Physician Assistant
DX: M76.891 Other specified enthesopathies of right lower limb, excluding foot (principal); M16.11 Unilateral primary osteoarthritis, right hip
CPT/HCPCS: 27093; 73525; 73722; A9585; J2003

== ENCOUNTER → 2025-06-02 12:48 | Outpatient (BNV) | payer MEDICARE, SELFPAY | PROVIDERS: Visit Provider Radiology Diagnostic Radiology | DX: M16.11 Unilateral primary osteoarthritis, right hip (principal) | CPT/HCPCS: 27093; 73525 ==

== ENCOUNTER 2025-08-13 11:10 | Outpatient (REF) | payer MEDICARE, SELFPAY ==
[2025-08-13 14:39] LABS: Appearance Urine Clear; Glucose Urine UA Negative (Negative); PH 8.5 (5.0-9.0); Specific Gravity - Urine <= 1.005 (1.005-1.025)
[2025-08-13 14:44] LABS: Hemoglobin A1C 123.1192 umol/L; Total Hemoglobin (HGBA1C) 3173.7749 umol/L
[2025-08-13 15:06] LABS: Alanine Aminotransferase 60 U/L (0-31); Albumin Level 4.1 g/dL (3.5-5.0); Alkaline Phosphatase 105 U/L (39-117); Aspartate Amino Transferase 44 U/L (5-31); Total Protein 7.0 g/dL (6.5-8.0)
== END 2025-08-13 11:11 | disposition home or self-care (01) ==
LOC: HO.WFDLDS 11:10
PROVIDERS: Referring Provider Physician Assistant; Visit Provider Family Medicine
DX: Z00.00 Encounter for general adult medical examination without abnormal findings (principal); R73.01 Impaired fasting glucose; R74.01 Elevation of levels of liver transaminase levels; R79.89 Other specified abnormal findings of blood chemistry
CPT/HCPCS: 36415; 80076; 81003; 83036

== ENCOUNTER 2025-08-23 14:58 | Outpatient (AMB) | payer MEDICARE, SELFPAY ==
--- NOTE | 2025-08-23 15:13 | MHC.PC.OV ---
Vital Signs 08/23/25 15:19 Height 5 ft 6 in Weight 233 lb BMI 37.6 BP 118/70 Blood Pressure Location Lt brachial Position Sitting Respiration 12 Pulse 89 Pulse Source Pulse Oximeter Temp 97.4 F Temp Source Oral Pulse Oximetry (%) 94 Oxygen Delivery Method Room Air Intake Visit Reasons: hip pain discussion Intake Note: Telehealth Follow up on labs Warranty Coordinator Required: No Allergies No Known Allergies Allergy (Verified 08/23/25 15:14) Medication List - Last Reconciled 08/23/25 by Lester Tipton MD atorvastatin 20 mg PO DAILY 90 days fluoxetine 80 mg PO QAM olanzapine 15 mg PO BEDTIME Tobacco use date assessed: 08/23/25 Fall risk assessment: 1 Fall in past year Last assessed Fall Risk: 08/23/25 Dental Screening Dental Screen Date: 08/23/25 Did you have a dental visit in the last 12 months?: Yes Did you have a dental problem in the last 6 months where you did not have access to dental care?: No Was dental information given to patient?: Patient has dentist HPI hip pain discussion HPI Details 64 y/o female presents to f/u labs via telemed. Labs drawn 08/13/25. Reviewed labs with pt. A1c 5.7%. Elevated liver enzymes - AST 44, ALT 60. Had been following up with orthopedics for R hip pain. [facility] Medical History Impacted molar Schizoaffective disorder Surgical History [place] teeth removed Social History Housing: House Patient Tobacco Use Status: Former Tobacco user Cigarette Packs Per Day: 2 Years Smoked: 8 e-Cigarette/Vaping Use: Never Used Second Hand Smoke Exposure: No service: No Current occupational status: retired Current occupational exposures/hazards: No Cognitive needs: No Hearing needs: No Vision needs: Yes (wears prescription glasses.) Questionnaire PHQ-9 Over the last 2 weeks, how often have you been bothered by any of the following problems? 1. Little interest or pleasure in doing things: several days 2. Feeling down, depressed, or hopeless: several days 3. Trouble falling or staying asleep, or sleeping too much: more than half the days 4. Feeling tired or having little energy: more than half the days 5. Poor appetite or overeating: several days 6. Feeling bad about yourself - or that you are a failure or have let yourself or your family down: several days 7. Trouble concentrating on things, such as reading the newspaper or watching television: several days 8. Moving or speaking so slowly that other people could have noticed. Or the opposite - being so fidgety or restless that you have been moving around a lot more than usual: several days 9. Thoughts that you would be better off or of hurting yourself in some way: not at all Total score: 10 Depression Screening Interpretation: Positive Depression Screening Done: Yes [id number] - PHQ-9 Billing: Yes Source: Developed by Drs. Estevan France, Erika Cleaning, Cole Jean and colleagues, with an educational suman from [employer]. Thrive Questionnaire Date Thrive assessed: 08/23/25 I am a: Patient What is your living situation today?: I have a steady place to live Within the past 12 months, did the food you bought not last and you didn't have the money to get more?: I choose not to answer this question Within the past 12 months, did you worry whether your food would run out before you got money to buy more?: I choose not to answer this question Do you have trouble paying for medicines?: No Do you have trouble getting transportation to medical appointments?: I choose not to answer this question Do you have trouble paying your heating and electricity bill?: I choose not to answer this question Do you have trouble taking care of your child, family member or friend?: I choose not to answer this question Do you have trouble with day-to-day activities such as bathing, preparing meals, shopping, managing finances, etc.?: I choose not to answer this question Are you currently unemployed and looking for a job?: No Are you interested in more education?: No Please select the resources that you would like help with: Transportation Currently or been in a relationship where the following occur: No concerns reported THRIVE Score: 0 JACOBO-7 AMB Questionnaire JACOBO-7 Date JACOBO - 7 assessed: 08/23/25 Feeling nervous, anxious, or on edge: 0 = Not at all Not being able to stop or control worryin = Not at all Worrying too much about different things: 0 = Not at all Trouble relaxin = Not at all Being so restless that it is hard to sit still: 0 = Not at all Becoming easily annoyed or irritable: 0 = Not at all Feeling afraid as if something awful might happen: 0 = Not at all Total JACOBO-7 score (0-4 normal; 5-9 mild; 10-14 moderate; 15-21 severe): 0 Source: Developed by Drs. Estevan France, Erika Cleaning, Cole Jean and colleagues, with an educational suman from [employer]. JACOBO-7 Assessment Billing JACOBO-7 Assessment Tool: JACOBO-7 Assessment 21041 Review of Systems Const Denies chills, Denies fatigue, Denies fever(s), Denies headache(s) and Denies weakness ENT Denies dizziness and Denies headache(s) Card Denies dyspnea Resp Denies cough, Denies dyspnea, Denies wheezing and Denies other (shortness of breath) Musc Denies numbness and Denies tingling Neuro Denies dizziness, Denies headache(s), Denies numbness, Denies tingling and Denies weakness Psych Denies anxiety and Denies depression Endo Denies fatigue Aller/Immun Denies wheezing Physical exam (Primary Care) Vital Signs: Last Vital Signs Temp 97.4 F 08/23/25 15:19 Pulse 89 08/23/25 15:19 Resp 12 08/23/25 15:19 BP 118/70 08/23/25 15:19 Pulse Ox 94 08/23/25 15:19 Oxygen Delivery Method Room Air 08/23/25 15:19 BMI result Body Mass Index 37.6 Tobacco/Smoking Status: Tobacco use Status Tobacco use date assessed 08/23/25 08/23/25 15:16 Patient Tobacco Use Status Former Tobacco user 08/23/25 15:16 e-Cigarette/Vaping Use Never Used 08/23/25 15:16 PHQ-9: PHQ-9 Score PHQ-9: Total score 10 08/23/25 16:34 Depression Screening Interpretation: Positive Thrive Assessment: Date of Thrive Assessment Date Thrive assessed 08/23/25 08/23/25 15:16 Currently or been in a relationship where the following occur: No concerns reported Telehealth Telehealth Telehealth Platform: Telephone Location of provider rendering services: practice address Location of patient: address on file Patient Identification confirmed using: Name, : Yes Telehealth method: voice only Patient verbally consented to treatment: Yes Patient verbally consented to billing insurance company: Yes Patient informed of any privacy concerns related to visit: Yes Minutes spent on Phone/Video with Pt.: 13 Coding Level of Care Code Tele Est Pt Level 2 (01651) Diagnoses Pre-diabetes R73.03 Elevated LFTs R79.89 Right hip pain M25.551 Additional Codes JACOBO-7 Assessment Billing - JACOBO-7 Assessment Tool: JACOBO-7 Assessment 08240 ([id number]) PHQ-9 - 94122 - PHQ-9 Billing: Yes ([id number]) Assessment & Plan Assessment & Plan (1) Pre-diabetes: Code(s): R73.03 - Prediabetes Category: Medical Plan: A1c 5.7%. Mild/early pre diabetes range She is also on olanzapine which can elevate blood sugars Encouraged her to work on a diet lower in sugars and starches as well as work on weight loss. Will continue to monitor (2) Elevated LFTs: Code(s): R79.89 - Other specified abnormal findings of blood chemistry Category: Medical Plan: Liver enzymes are elevated further Ordered ultrasound of her liver Work on weight loss, good hydration Will follow-up 2 months (3) Right hip pain: Code(s): M25.551 - Pain in right hip Category: Medical Plan: Ongoing right hip pain. MRI shows labral tear and osteoarthritis of the hip as well as tendinopathies of the gluteal muscles. Had been offered physical therapy by Ortho but she declined this. Discussed goals of physical therapy. She will readdress this with her feeding specialist. Orders: Orders US abdomen burrows w elastography Today R74.01 - Elevation of levels of liver transaminase levels
[2025-08-23 15:19] VITALS: BP 118/70; PULSE 89; RESP 12; TEMP 36.3; O2SAT 94; BMI 37.6
== END 2025-08-23 17:05 | disposition home or self-care (01) ==
PROVIDERS: PCP Family Medicine; Visit Provider Family Medicine
DX: R73.03 Prediabetes (principal); R79.89 Other specified abnormal findings of blood chemistry; M25.551 Pain in right hip

== ENCOUNTER → 2025-08-23 14:58 | Outpatient (BNVA) | payer MEDICARE, SELFPAY | PROVIDERS: PCP Family Medicine; Visit Provider Family Medicine | DX: R73.03 Prediabetes (principal); R79.89 Other specified abnormal findings of blood chemistry; M25.551 Pain in right hip; R74.01 Elevation of levels of liver transaminase levels | CPT/HCPCS: 96127 ==

== ENCOUNTER 2025-10-19 10:23 | Outpatient (REF) | payer MEDICARE, SELFPAY ==
--- NOTE | ~2025-10-19 | US_ITS ---
EXAMINATION: US ABDOMEN LIMITED WITH LIVER ELASTOGRAPHY CLINICAL INFORMATION: Elevated transaminases levels COMPARISON: None available. TECHNIQUE: Real-time imaging of the abdominal viscera. Noninvasive ultrasound liver fibrosis assessment is performed using Sushila ElastPQ point quantification shear wave elastography (pSWE) with a 5 MHz transducer. Multiple elastography samples are obtained. FINDINGS: PANCREAS: The visualized pancreatic head and body are normal in appearance. The remainder of the pancreas is obscured from visualization by the overlying bowel gas. LIVER: The liver demonstrates normal contour. Increased parenchymal echogenicity. No focal lesion or intrahepatic biliary duct dilatation. The right lobe measures 15.6 cm in length. The left lobe measures 9.6 cm in length. Shear wave elastography provides a median stiffness of 1.32 m/s (reference: normal median stiffness is 0.81 - 1.22 m/s). The IQR/median stiffness to assess sampling precision is 0.15 (reference: optimal IQR/median stiffness is under 0.3). GALLBLADDER: The gallbladder is physiologically distended without evidence of stones, sludge, polyps, wall thickening or pericholecystic fluid. COMMON BILE DUCT: Normal in caliber measuring 0.2 cm in diameter. RIGHT KIDNEY: No hydronephrosis. No renal calculi or focal parenchymal lesions. The kidney measures 10.9 cm in maximum dimension. FREE FLUID: None seen. Study somewhat limited by body habitus. US/US abdomen burrows w elastography IMPRESSION: 1. Increased liver parenchymal echogenicity more commonly seen with hepatic steatosis. 2. Elastography: Median stiffness 1.32 m/s. *Liver Stiffness less than 1.7 m/s: In the absence of other known clinical signs, rules out compensated advanced chronic liver disease. REFERENCE: Society of Radiologists in Ultrasound Liver Stiffness Thresholds (2020): LIVER STIFFNESS THRESHOLDS: *Liver Stiffness equal or less than 1.3 m/s: High probability of being normal. *Liver Stiffness less than 1.7 m/s: In the absence of other known clinical signs, rules out compensated advanced chronic liver disease. *Liver Stiffness 1.7-2.1 m/s: Suggestive of compensated advanced chronic liver disease but need further test for confirmation. *Liver Stiffness over 2.1 m/s: Rules in compensated advanced chronic liver disease. *Liver Stiffness over 2.4 m/s: Suggestive of clinically significant portal hypertension. QUALITY OF DATA SET: *IQR/Median value equal or less than 0.15 implies a quality data set. *IQR/Median value over 0.15 implies a poor quality data set. SIGNIFICANT CHANGE FROM PRIOR EXAM: Significant change if liver stiffness measurement is 10% or greater from prior exam. OTHER CONSIDERATIONS: The stage of liver fibrosis may be overestimated in the setting of acute hepatitis, liver inflammation, elevated liver function tests, hepatic vascular congestion, obstructive cholestasis, non-fasting state, and infiltrative diseases such as amyloidosis and lymphoma. In some patients with NAFLD, the liver stiffness thresholds for compensated advanced chronic liver disease may be lower. In causes other than viral hepatitis and NAFLD, liver stiffness thresholds are not well established. Electronically signed by: Shalom Valdivia MD 10/20/2025 02:29 PM [facility] [place]
== END 2025-10-19 10:24 | disposition home or self-care (01) ==
LOC: HO.US 10:23
PROVIDERS: Absent Provider Physician Assistant; PCP Family Medicine; Visit Provider Family Medicine
DX: R74.01 Elevation of levels of liver transaminase levels (principal); R79.89 Other specified abnormal findings of blood chemistry
CPT/HCPCS: 76705; 76981

== ENCOUNTER → 2025-10-19 10:27 | Outpatient (BNV) | payer MEDICARE, SELFPAY | PROVIDERS: Absent Provider Physician Assistant; PCP Family Medicine; Visit Provider Radiology Diagnostic Ultrasound | DX: R74.01 Elevation of levels of liver transaminase levels (principal) | CPT/HCPCS: 76705 ==

== ENCOUNTER 2025-10-25 11:17 | Outpatient (AMB) | payer MEDICARE, SELFPAY ==
[2025-10-25 11:21] VITALS: BP 132/86; PULSE 74; TEMP 36.3; O2SAT 95; BMI 37.3
--- NOTE | 2025-10-25 11:21 | MHC.PC.OV ---
Vital Signs 10/25/25 11:21 Height 5 ft 6 in Weight 231 lb 6 oz BMI 37.3 BP 132/86 Blood Pressure Location Rt brachial Position Sitting Pulse 74 Pulse Source Pulse Oximeter Temp 97.3 F Temp Source Temporal Artery Scan Pulse Oximetry (%) 95 Oxygen Delivery Method Room Air Intake Visit Reasons: f/u ultrasound Allergies No Known Allergies Allergy (Verified 10/25/25 11:24) Medication List - Last Reconciled 10/25/25 by Lester Tipton MD atorvastatin 20 mg PO DAILY 90 days fluoxetine 80 mg PO QAM olanzapine 15 mg PO BEDTIME Tobacco use date assessed: 10/25/25 Fall risk assessment: No Falls in past year Last assessed Fall Risk: 10/25/25 Dental Screening Dental Screen Date: 10/25/25 Did you have a dental visit in the last 12 months?: Yes Did you have a dental problem in the last 6 months where you did not have access to dental care?: No Was dental information given to patient?: Patient has dentist HPI f/u ultrasound HPI Details 65 y.o female presents to f/u ultrasound for liver enzymes. Liver ultrasound 10/19/25 shows increased liver parenchymal echogenicity more commonly seen with hepatic steatosis. Ongoing R hip pain. MRI had shown labral tear and osteoarthritis of the hip as well as tendinopathies of the gluteal muscles. [facility] Medical History Impacted molar Schizoaffective disorder Surgical History [place] teeth removed Social History Housing: House Patient Tobacco Use Status: Former Tobacco user Cigarette Packs Per Day: 2 Years Smoked: 8 e-Cigarette/Vaping Use: Never Used Second Hand Smoke Exposure: No service: No Current occupational status: retired Current occupational exposures/hazards: No Cognitive needs: No Hearing needs: No Vision needs: Yes (wears prescription glasses.) Questionnaire PHQ-9 Over the last 2 weeks, how often have you been bothered by any of the following problems? 1. Little interest or pleasure in doing things: several days 2. Feeling down, depressed, or hopeless: several days 3. Trouble falling or staying asleep, or sleeping too much: more than half the days 4. Feeling tired or having little energy: more than half the days 5. Poor appetite or overeating: several days 6. Feeling bad about yourself - or that you are a failure or have let yourself or your family down: several days 7. Trouble concentrating on things, such as reading the newspaper or watching television: several days 8. Moving or speaking so slowly that other people could have noticed. Or the opposite - being so fidgety or restless that you have been moving around a lot more than usual: several days 9. Thoughts that you would be better off or of hurting yourself in some way: not at all Total score: 10 Depression Screening Interpretation: Positive Depression Screening Done: Yes Source: Developed by Drs. Estevan France, Erika Cleaning, Cole Jean and colleagues, with an educational suman from [employer]. Thrive Questionnaire Date Thrive assessed: 02/07/25 I am a: Patient What is your living situation today?: I have a steady place to live Within the past 12 months, did the food you bought not last and you didn't have the money to get more?: I choose not to answer this question Within the past 12 months, did you worry whether your food would run out before you got money to buy more?: I choose not to answer this question Do you have trouble paying for medicines?: No Do you have trouble getting transportation to medical appointments?: I choose not to answer this question Do you have trouble paying your heating and electricity bill?: I choose not to answer this question Do you have trouble taking care of your child, family member or friend?: I choose not to answer this question Do you have trouble with day-to-day activities such as bathing, preparing meals, shopping, managing finances, etc.?: I choose not to answer this question Are you currently unemployed and looking for a job?: No Are you interested in more education?: No Please select the resources that you would like help with: Transportation Currently or been in a relationship where the following occur: No concerns reported THRIVE Score: 0 AUDIT C Alcohol Use Questionnaire (AUDIT-C) 1. How often do you have a drink containing alcohol?: Monthly or less 2. How many drinks containing alcohol do you have on a typical day when you are drinking?: 1 or 2 3. How often do you have six or more drinks on one occasion?: Never Total Score: 1 JACOBO-7 AMB Questionnaire JACOBO-7 Date JACOBO - 7 assessed: 08/23/25 Feeling nervous, anxious, or on edge: 0 = Not at all Not being able to stop or control worryin = Not at all Worrying too much about different things: 0 = Not at all Trouble relaxin = Not at all Being so restless that it is hard to sit still: 0 = Not at all Becoming easily annoyed or irritable: 0 = Not at all Feeling afraid as if something awful might happen: 0 = Not at all Total JACOBO-7 score (0-4 normal; 5-9 mild; 10-14 moderate; 15-21 severe): 0 Source: Developed by Drs. Estevan France, Erika Cleaning, Cole Jean and colleagues, with an educational suman from [employer]. Review of Systems Const Denies chills, Denies fatigue, Denies fever(s), Denies headache(s) and Denies weakness ENT Denies dizziness and Denies headache(s) Card Denies dyspnea Resp Denies cough, Denies dyspnea, Denies wheezing and Denies other (shortness of breath) Musc Denies numbness and Denies tingling Neuro Denies dizziness, Denies headache(s), Denies numbness, Denies tingling and Denies weakness Psych Denies anxiety and Denies depression Endo Denies fatigue Aller/Immun Denies wheezing Physical exam (Primary Care) Vital Signs: Last Vital Signs Temp 97.3 F 10/25/25 11:21 Pulse 74 10/25/25 11:21 BP 132/86 10/25/25 11:21 Pulse Ox 95 10/25/25 11:21 Oxygen Delivery Method Room Air 10/25/25 11:21 BMI result Body Mass Index 37.3 Tobacco/Smoking Status: Tobacco use Status Tobacco use date assessed 10/25/25 10/25/25 11:27 Patient Tobacco Use Status Former Tobacco user 10/25/25 11:24 e-Cigarette/Vaping Use Never Used 10/25/25 11:24 PHQ-9: PHQ-9 Score PHQ-9: Total score 10 10/25/25 11:27 Depression Screening Interpretation: Positive Thrive Assessment: Date of Thrive Assessment Date Thrive assessed 02/07/25 10/25/25 11:24 Currently or been in a relationship where the following occur: No concerns reported Const General: well developed; No acute distress Nutritional Appearance: well nourished Orientation/consciousness: patient oriented x3 HENMT Head: Yes normocephalic and Yes atraumatic Eyes General: appearance normal, both eyes and all related structures Pupils: Equal, round and reactive pupils present EOM: EOMs intact bilaterally Resp Effort & Inspection: normal respiratory effort Neuro General: patient oriented x3 and gait normal Cranial nerves: Yes Equal, round and reactive pupils present Psych Affect: normal affect Coding Level of Care Code Est Pt Level 3 (71564) Diagnoses Elevated LFTs R79.89 Right hip pain M25.551 Assessment & Plan Assessment & Plan (1) Elevated LFTs: Code(s): R79.89 - Other specified abnormal findings of blood chemistry Category: Medical Plan: Ultrasound shows hepatic steatosis. Elastography negative for compensated advanced liver disease Continue good hydration and weight loss. Patient has lost another 2 lb. Will continue to monitor and she will get her labs redrawn today to recheck liver enzymes (2) Right hip pain: Code(s): M25.551 - Pain in right hip Category: Medical Plan: Teres ligament tear Patient has been followed by ortho and has undergone physical therapy. She does not feel that physical therapy resolved her discomfort. I encouraged her to follow-up with ortho to discuss next steps
== END 2025-10-25 12:04 | disposition home or self-care (01) ==
LOC: HO.HMCFM 11:18
PROVIDERS: PCP Family Medicine; Visit Provider Family Medicine
DX: R79.89 Other specified abnormal findings of blood chemistry (principal); M25.551 Pain in right hip

== ENCOUNTER → 2025-10-25 11:17 | Outpatient (BNVA) | payer MEDICARE, SELFPAY | PROVIDERS: PCP Family Medicine; Visit Provider Family Medicine | DX: R79.89 Other specified abnormal findings of blood chemistry (principal); M25.551 Pain in right hip | CPT/HCPCS: 99212 ==